=== PATIENT | female | born 1950 | race Caucasian/White ===

== ENCOUNTER 2017-07-03 14:18 | Emergency (ER) | payer MEDICARE, BC ==
[2017-07-03 15:05] VITALS: BP 138/89
--- NOTE | 2017-07-03 16:00 | EDM.PDOC ---
ED HPI GENERAL MEDICAL PROBLEM - General Chief Complaint: Upper Extremity Injury/Pain Stated Complaint: FELL ON ICE, HURT LEFT ELBOW AND RIBS Time Seen by Provider: 07/03/17 15:50 Source of Information: Reports: Patient History Limitations: Reports: No Limitations - History of Present Illness INITIAL COMMENTS - FREE TEXT/NARRATIVE: This 67 yo female patient reports to the ED due to a ground level fall, pain in her left elbow and pain in her left ribs. The patient reports she slipped on the ice this morning and hit her elbow. The patient reports she placed a bandage over her left elbow, but continues to have some bleeding. The patient reports increased left rib pain with breathing, sneezing or coughing. The patient reports no similar previous injuries. The patient reports she had no loss of consciousness before, during or after the fall. Onset: Today Onset Date: 07/03/17 Duration: Constant Location: Reports: Chest (left rib), Upper Extremity, Left (left elbow) Quality: Reports: Ache, Sharp, Stabbing Severity: Moderate Improves with: Reports: Rest Worsens with: Reports: Movement Context: Reports: Trauma (fall) Associated Symptoms: Reports: Chest Pain (left rib pain) Left Flank Pain Score (Numeric/FACES): 5 - Related Data Allergies Allergy/AdvReac Type Severity Reaction Status Date / Time amoxicillin trihydrate Allergy Rash Verified 09/15/15 13:29 [From Augmentin] potassium clavulanate Allergy Rash Verified 09/15/15 13:29 [From Augmentin] Home Meds: Home Meds Alendronate [Fosamax] 70 mg PO ASDIRECTED 09/15/15 [History] Aspirin [Low Dose Aspirin EC] 81 mg PO DAILY 09/15/15 [History] Aspirin/Acetaminophen/Caffeine [Svcbqos-Zletbzpukcxet-Uxwj Tab] 1 tab PO ASDIRECTED PRN 09/15/15 [History] Budesonide/Formoterol [Symbicort 160-4.5 MCG] 2 inh INH DAILY 09/15/15 [History] Carboxymethylcellulose Sodium [Restore Tears] 1 drop EYEBOTH DAILY 09/15/15 [ History] DULoxetine HCl [Cymbalta] 60 mg PO DAILY 09/15/15 [History] Vitamin B Complex [B Complex] 1 tab PO DAILY 09/15/15 [History] Vitamin E 400 unit PO DAILY 09/15/15 [History] Krill/[place]-3/Dha/Epa/Lipids [Krill Oil 300 mg Softgel] 1 tab PO DAILY 09/16/15 [History] Past Medical History HEENT History: Reports: Impaired Vision - Past Surgical History Female Surgical History: Reports: Hysterectomy, Tubal Ligation Social & Family History - Tobacco Use Smoking Status *Q: Current Every Day Smoker Years of Tobacco use: 50 Packs/Tins Daily: 1 - Caffeine Use Caffeine Use: Reports: Coffee, Soda Review of Systems - Review of Systems Review Of Systems: ROS reveals no pertinent complaints other than HPI. ED EXAM, GENERAL - Physical Exam Exam: See Below Exam Limited By: No Limitations General Appearance: Alert, WD/WN, Moderate Distress Eye Exam: Bilateral Eye: EOMI, Normal Inspection, PERRL Ears: Normal External Exam, Normal Canal, Hearing Grossly Normal, Normal TMs Nose: Normal Inspection, Normal Mucosa, No Blood Throat/Mouth: Normal Inspection, Normal Lips, Normal Teeth, Normal Gums, Normal Oropharynx, Normal Voice, No Airway Compromise Head: Atraumatic, Normocephalic Neck: Normal Inspection, Supple, Non-Tender, Full Range of Motion Respiratory/Chest: No Respiratory Distress, Lungs Clear, Normal Breath Sounds, No Accessory Muscle Use, Other (left rib tenderness to palpation (mid left sided rib pain) ) Cardiovascular: Normal Peripheral Pulses, Regular Rate, Rhythm, No Edema, No Gallop, No JVD, No Murmur, No Rub GI/Abdominal: Normal Bowel Sounds, Soft, Non-Tender, No Organomegaly, No Distention, No Abnormal Bruit, No Mass (Female) Exam: Deferred Rectal (Female) Exam: Deferred Back Exam: Normal Inspection, Full Range of Motion, NT Extremities: Arm Pain (left elbow pain (abrasion with bleeding controlled) Neurological: Alert, Oriented, CN II-XII Intact, Normal Cognition, Normal Gait, Normal Reflexes, No Motor/Sensory Deficits Psychiatric: Normal Affect, Normal Mood Skin Exam: Warm, Dry, Intact, Normal Color, No Rash Lymphatic: No Adenopathy Course - Vital Signs Last Recorded V/S: Last Vital Signs Temp 36.6 C 07/03/17 15:04 Pulse 76 07/03/17 15:04 Resp 16 07/03/17 15:04 BP 138/89 07/03/17 15:04 Pulse Ox 99 07/03/17 15:04 Departure - Departure Time of Disposition: 16:55 Disposition: Home, Self-Care 01 Condition: Fair Clinical Impression: Fall from ground level Contusion of rib on left side Qualifiers: Encounter type: initial encounter Qualified Code(s): S20.212A - Contusion of left front wall of thorax, initial encounter Left elbow contusion Qualifiers: Encounter type: initial encounter Qualified Code(s): S50.02XA - Contusion of left elbow, initial encounter - Discharge Information Instructions: Rib Contusion, Elbow Contusion, Ozjz-ge-Pbcg Forms: ED Department Discharge Care Plan Goals: The patient was advised of the examination and x-ray results during the visit. The patient was encouraged to take over the counter medications as directed for temporary symptom relief. The patient should rest, ice and elevate her left elbow. If the patient has any additional symptoms or concerns, the patient should follow-up with her primary care facility or return to the emergency department.
--- NOTE | 2017-07-03 16:36 | CR ---
Clinical history: 67-year-old female injured left chest (ribs) in a fall. Interpretation: Normal cardiac silhouette without cephalization of vascular flow, signs of alveolar edema or dependen t effusion. Mild dorsolumbar scoliosis, generalized osteopenia and multilevel disc disease with arthritic spondyl osis of the dorsal spine. No sign of left rib fracture, underlying lung contusion, ipsilateral dependent pleural effusion or le ft-sided pneumothorax (BB marker over the seventh rib on the left). No lung mass, hilar lymphadenopathy or focal lobar pneumonia. CONCLUSION: Chronic abnormalities dorsal spine. No left rib fracture. No new cardiopulmonary abnormality since 01 Sep 2008 exam.
--- NOTE | 2017-07-03 16:50 | CR ---
Clinical history: 67-year-old female injured fall. Interpretation: Tiny bone spur olecranon process proximal ulna. No sign of left elbow joint effusion, left elbow fracture or dislocation.
== END 2017-07-03 17:20 | disposition home or self-care (01) ==
LOC: DL.ED 14:18
DX: S20.212A Contusion of left front wall of thorax, initial encounter (principal); S50.02XA Contusion of left elbow, initial encounter; F17.210 Nicotine dependence, cigarettes, uncomplicated; Z88.1 Allergy status to other antibiotic agents; Z79.82 Long term (current) use of aspirin; Z79.899 Other long term (current) drug therapy; W00.9XXA Unspecified fall due to ice and snow, initial encounter
CPT/HCPCS: 71101-LT; 73080-LT; 99283; 99284

== ENCOUNTER 2017-11-01 08:03 | Day surgery (SDC) | payer MEDICARE, BC ==
[2017-11-01] MEDS ORDERED: Sodium Chloride 0.9% 10 ML Syringe IV ONE (08:04)
[2017-11-01] MEDS ORDERED: Dexamethasone 4 MG/ML SDV IV ONE (08:04)
[2017-11-01] MEDS ORDERED: Midazolam 1 MG/ML 2 ML SDV IV ONE (08:04)
[2017-11-01] MEDS ORDERED: Sodium Chloride 0.9% 10 ML Syringe FLUSH PRN (08:30)
[2017-11-01] MEDS ORDERED: Proparacaine 0.5% Ophth Soln 15 ML Bottle EYELF ONE (08:30)
[2017-11-01] MEDS ORDERED: Ondansetron 4 MG/2 ML SDV IVPUSH PRN (08:30)
[2017-11-01] MEDS ORDERED: Acetaminophen 325 MG Tab PO PRN (08:30)
[2017-11-01] MEDS ORDERED: Moxifloxacin 0.5% Ophth Soln 3 ML Bottle EYELF ONE (08:30)
[2017-11-01] MEDS ORDERED: Timolol Maleate 0.5% Ophth Soln 5 ML Bottle EYELF ONE (08:30)
[2017-11-01] MEDS ORDERED: Phenylephrine 10% Ophth Soln 5 ML Bot EYELF ONE (08:30)
[2017-11-01] MEDS ORDERED: Povidone-Iodine 5% Sterile Ophth Soln 30 ML Bottle EYELF ONE ×2 (08:30→09:35)
[2017-11-01] MEDS ORDERED: Cataract Ophth Solution EYELF ONE (08:30)
[2017-11-01] MEDS ORDERED: Phenylephrine 10% Ophth Soln 5 ML Bot EYELF PRN (08:30)
[2017-11-01] MEDS ORDERED: Tetracaine HCl/PF 0.5% 4 ML Bottle EYELF ONE (09:34)
[2017-11-01] MEDS ORDERED: Lidocaine 1% 30 ML SDV INJECT ONE (09:39)
[2017-11-01] MEDS ORDERED: Balanced Salt Solution Plus Ophth Irrig 500 ML Bottle IOCULAR ONE (09:40)
[2017-11-01] MEDS ORDERED: Vancomycin 500 MG SDV EYELF ONE (09:41)
[2017-11-01] MEDS ORDERED: Chondroitin Sulfate/Hyaluronate Sodium Ophth Inj 0.75 ML Syringe EYELF ONE (09:43)
[2017-11-01] MEDS ORDERED: Apraclonidine 0.5% Ophth Soln 5 ML Bot EYELF ONE (09:48)
[2017-11-01] MEDS ORDERED: Dexamethasone/Neomycin/Polymyxin B Ophth Oint 3.5 GM Tube EYELF ONE (09:49)
--- NOTE | 2017-11-01 10:28 | OR ---
DATE: 11/01/2017 PREOPERATIVE DIAGNOSIS: Visually significant mixed cataract, left eye. POSTOPERATIVE DIAGNOSIS: Visually significant mixed cataract, left eye. PROCEDURE: Extracapsular cataract extraction with intraocular lens implant, left eye. ANESTHESIA: Topical/local MAC. COMPLICATIONS: None. INDICATION: Ms. Huitron was seen in the clinic. She has complained of difficulty reading, difficulty seeing road signs, difficulty with glare and depth perception. Clinical examination reveals visually significant mixed cataract. I explained options; I offered cataract surgery; and I explained risks including but not limited to infection, retinal detachment, loss of vision, and need for additional surgery amongst others. We discussed implant options. She has requested a monofocal implant. She understands that she may require glasses following surgery. OPERATIVE DESCRIPTION: After informed consent was obtained and the risks, benefits, and alternatives were explained, the patient was brought to the operative suite and topical anesthesia was administered. The patient was then prepped and draped in the sterile fashion, and attention was placed on the left eye. A sterile lid speculum was placed into the left eye to allow operative exposure. A full-thickness paracentesis was made in the temporal portion of the operative eye. Preservative-free lidocaine 0.1 mL was injected into the anterior chamber followed by viscoelastic. A full-thickness corneal incision was then made into the anterior chamber. A bent needle cystotome was used to create a small charles in the anterior capsule. The capsulorrhexis forceps was then used to create a 360-degree curvilinear capsulorrhexis. The nucleus was then removed using a phacoemulsification handpiece, and the remaining cortical material was then removed with irrigation and aspiration handpiece. Following removal of the cortical material, the capsular bag was then inspected and noted to be free of any holes or tears. Viscoelastic was then injected into the capsular bag, and the intraocular lens was inserted into the capsular bag. The viscoelastic material was then removed from both the anterior and posterior chambers and from behind the IOL. The lens and capsular bag were then reinspected. The IOL was well centered and the capsular bag intact. The wound and paracentesis sites were inspected and hydrated with balanced saline solution. Both were found to be self-sealing. The intraocular pressure was assessed digitally and found to be within normal range. A good red reflex was noted at the completion of the procedure. No complications occurred during the operation. At the completion of the procedure, Jacqui Inmann, and Iopidine drops were placed into the operative eye. A sterile eye shield was placed over the operative eye, and the patient was transported to the postoperative recovery area having tolerated the procedure well. Postoperative instructions were given along with a postoperative appointment. The patient was advised to call with any questions or concerns. [facility] /[id number]
[2017-11-01 13:22] VITALS: BP 145/85
== END 2017-11-01 10:48 | disposition home or self-care (01) ==
LOC: DL.SDS 08:03
PROVIDERS: ATTEND Ophthalmology
DX: H25.812 Combined forms of age-related cataract, left eye (principal); I10 Essential (primary) hypertension; J44.9 Chronic obstructive pulmonary disease, unspecified; F17.210 Nicotine dependence, cigarettes, uncomplicated; F41.9 Anxiety disorder, unspecified; E78.5 Hyperlipidemia, unspecified; F32.9 Major depressive disorder, single episode, unspecified; Z79.82 Long term (current) use of aspirin; Z79.899 Other long term (current) drug therapy; Z88.0 Allergy status to penicillin
CPT/HCPCS: 00142; 66984; A9270; C1780; J1100; J2250; J3370; J7050

== ENCOUNTER 2017-11-08 07:59 | Day surgery (SDC) | payer MEDICARE, BC ==
[2017-11-08] MEDS ORDERED: Moxifloxacin 0.5% Ophth Soln 3 ML Bottle EYERT ONE (08:00)
[2017-11-08] MEDS ORDERED: Midazolam 1 MG/ML 2 ML SDV IV ONE (08:00)
[2017-11-08] MEDS ORDERED: Ondansetron 4 MG/2 ML SDV IVPUSH PRN (08:00)
[2017-11-08] MEDS ORDERED: Sodium Chloride 0.9% 10 ML Syringe FLUSH PRN (08:00)
[2017-11-08] MEDS ORDERED: Povidone-Iodine 5% Sterile Ophth Soln 30 ML Bottle EYERT ONE ×2 (08:00→09:31)
[2017-11-08] MEDS ORDERED: Phenylephrine 10% Ophth Soln 5 ML Bot EYERT ONE (08:00)
[2017-11-08] MEDS ORDERED: Proparacaine 0.5% Ophth Soln 15 ML Bottle EYERT ONE (08:00)
[2017-11-08] MEDS ORDERED: Cataract Ophth Solution EYERT ONE (08:00)
[2017-11-08] MEDS ORDERED: Sodium Chloride 0.9% 10 ML Syringe IV ONE (08:00)
[2017-11-08] MEDS ORDERED: Acetaminophen 325 MG Tab PO PRN (08:00)
[2017-11-08] MEDS ORDERED: Dexamethasone 4 MG/ML SDV IV ONE (08:00)
[2017-11-08] MEDS ORDERED: Timolol Maleate 0.5% Ophth Soln 5 ML Bottle EYERT ONE (08:00)
[2017-11-08] MEDS ORDERED: Phenylephrine 10% Ophth Soln 5 ML Bot EYERT PRN (08:00)
[2017-11-08] MEDS ORDERED: Tetracaine HCl/PF 0.5% 4 ML Bottle EYERT ONE (09:30)
[2017-11-08] MEDS ORDERED: Lidocaine 1% 30 ML SDV INJECT ONE (09:36)
[2017-11-08] MEDS ORDERED: Vancomycin 500 MG SDV EYERT ONE (09:37)
[2017-11-08] MEDS ORDERED: Balanced Salt Solution Ophth Irrig 500 ML Bottle IOCULAR ONE (09:37)
[2017-11-08] MEDS ORDERED: Chondroitin Sulfate/Hyaluronate Sodium Ophth Inj 0.75 ML Syringe EYERT ONE (09:38)
[2017-11-08] MEDS ORDERED: Dexamethasone/Neomycin/Polymyxin B Ophth Oint 3.5 GM Tube EYERT ONE (09:47)
[2017-11-08] MEDS ORDERED: Apraclonidine 0.5% Ophth Soln 5 ML Bot EYERT ONE (09:47)
[2017-11-08 12:04] VITALS: BP 121/75
--- NOTE | 2017-11-08 12:28 | OR ---
DATE: 11/08/2017 PREOPERATIVE DIAGNOSIS: Visually significant mixed cataract, right eye. POSTOPERATIVE DIAGNOSIS: Visually significant mixed cataract, right eye. PROCEDURE: Extracapsular cataract extraction with intraocular lens implant, right eye. ANESTHESIA: Topical/local MAC. COMPLICATIONS: None. INDICATION: Ms. Huitron was seen in the clinic. She is unhappy with her vision. She complains of difficulty reading, difficulty road signs, and difficulty with glare. Her clinical examination reveals visually significant mixed cataract. I explained options; I offered cataract surgery; and I explained risks including but not limited to infection, retinal detachment, loss of vision, and need for additional surgery. We discussed implant options. She has requested a monofocal implant. She is comfortable wearing glasses following surgery if necessary. OPERATIVE DESCRIPTION: After informed consent was obtained and the risks, benefits, and alternatives were explained, the patient was brought to the operative suite and topical anesthesia was administered. The patient was then prepped and draped in the sterile fashion, and attention was placed on the right eye. A sterile lid speculum was placed into the right eye to allow operative exposure. A full-thickness paracentesis was made in the temporal portion of the operative eye. Preservative-free lidocaine 0.1 mL was injected into the anterior chamber followed by viscoelastic. A full-thickness corneal incision was then made into the anterior chamber. A bent needle cystotome was used to create a small charles in the anterior capsule. The capsulorrhexis forceps was then used to create a 360-degree curvilinear capsulorrhexis. The nucleus was then removed using a phacoemulsification handpiece, and the remaining cortical material was then removed with irrigation and aspiration handpiece. Following removal of the cortical material, the capsular bag was then inspected and noted to be free of any holes or tears. Viscoelastic was then injected into the capsular bag and the intraocular lens was inserted into the capsular bag. The viscoelastic material was then removed from both the anterior and posterior chambers and from behind the IOL. The lens and capsular bag were then reinspected. The IOL was well centered and the capsular bag intact. The wound and paracentesis sites were inspected and hydrated with balanced saline solution. Both were found to be self-sealing. The intraocular pressure was assessed digitally and found to be within normal range. A good red reflex was noted at the completion of the procedure. No complications occurred during the operation. At the completion of the procedure, CommonBondrajeshl, Voltaren, and Iopidine drops were placed into the operative eye. A sterile eye shield was placed over the operative eye, and the patient was transported to the postoperative recovery area having tolerated the procedure well. Postoperative instructions were given along with a postoperative appointment. The patient was advised to call with any questions or concerns. [facility] /[id number]
== END 2017-11-08 11:10 | disposition home or self-care (01) ==
LOC: DL.SDS 07:59
PROVIDERS: ATTEND Ophthalmology
DX: H25.811 Combined forms of age-related cataract, right eye (principal); F17.210 Nicotine dependence, cigarettes, uncomplicated; J44.9 Chronic obstructive pulmonary disease, unspecified; I10 Essential (primary) hypertension; E78.5 Hyperlipidemia, unspecified; F41.1 Generalized anxiety disorder; F32.9 Major depressive disorder, single episode, unspecified; Z79.82 Long term (current) use of aspirin; Z88.0 Allergy status to penicillin
CPT/HCPCS: 00142; 66984; A9270; J3370; J7050; C1780; J1100; J2250

== ENCOUNTER 2020-02-05 19:22 | Inpatient (IN) | payer MEDICARE, BC, OTHER ==
[2020-02-05] MEDS ORDERED: oxyCODONE 5 MG Tab PO PRN (19:55)
[2020-02-05] MEDS ORDERED: Zolpidem 5 MG Tab PO PRN (19:55)
[2020-02-05] MEDS ORDERED: Albuterol 0.083% 2.5 MG/3 ML Neb Soln NEB PRN (19:55)
[2020-02-05] MEDS ORDERED: Non-Formulary Medication 1 Each (L.Acidoph,Paracasei, B.Lactis [Probiotic] 1 CAP) PO SCH (20:15)
--- NOTE | 2020-02-05 20:38 | PCM.HP ---
H&P History of Present Illness - General Date of Service: 02/05/20 Admit Problem/Dx: Admission Diagnosis/Problem Admission Diagnosis/Problem Acute heart failure Source of Information: Patient, Provider History Limitations: Reports: No Limitations - History of Present Illness Initial Comments - Free Text/Narative: Patient is a 69-year-old female with a medical history of COPD/asthma, anxiety/depression, tobacco use disorder who presented with complaints of shortness of breath and lateral leg swelling. Patient had seen her PCP 2 days ago for routine annual visit. On her way up daily to [place] she was the clinic daily, she became short of breath and had to be put on a wheelchair. Patient also reported that she had noticed lateral lower extremity swelling for the past 2 weeks. She denies any chest pain, fever, nausea, diarrhea, vomiting. No prior history of heart failure. She denies any exposure to anyone with coronavirus. She has productive cough usually in the morning and that is chronic. She has been a smoker for over 50 years. Labs were done at the visit which were remarkable for elevated BNP of 1140 and D-dimer over 600. Patient was recommended to be admitted for evaluation for new onset heart failure. Bilateral lower extremity ultrasound was negative for DVT. - Related Data Allergies/Adverse Reactions: Allergies Allergy/AdvReac Type Severity Reaction Status Date / Time amoxicillin trihydrate Allergy Rash Verified 02/05/20 20:12 [From Augmentin] potassium clavulanate Allergy Rash Verified 02/05/20 20:12 [From Augmentin] Home Medications: Home Meds Alendronate [Fosamax] 70 mg PO ASDIRECTED 09/15/15 [History] Aspirin [Low Dose Aspirin EC] 81 mg PO DAILY 09/15/15 [History] Aspirin/Acetaminophen/Caffeine [Meafshk-Gnhkguzmlmuec-Pvtf Tab] 1 tab PO ASDIRECTED PRN 09/15/15 [History] Budesonide/Formoterol [Symbicort 160-4.5 MCG] 2 inh INH DAILY 09/15/15 [History] Carboxymethylcellulose Sodium [Restore Tears] 1 drop EYEBOTH DAILY 09/15/15 [History] Vitamin B Complex [B Complex] 1 tab PO DAILY 09/15/15 [History] Vitamin E 400 unit PO DAILY 09/15/15 [History] Krill/[place]-3/Dha/Epa/Lipids [Krill Oil 300 mg Softgel] 1 tab PO DAILY 09/16/15 [History] Calcium Carb/Magnesium Oxid/D3 [Calcium Magnesium + D] 1 tab PO DAILY 10/31/17 [History] Estrogens, Conjugated [Premarin] 0.45 mg PO DAILY 10/31/17 [History] L.acidoph,Paracasei, B.lactis [Probiotic] 1 cap PO ASDIRECTED 10/31/17 [History] Methylcellulose [Citrucel] 500 mg PO DAILY 10/31/17 [History] Venlafaxine [Effexor XR] 150 mg PO DAILY 10/31/17 [History] Multivitamin-Min/Iron/FA/Vit K [Multi-Day Plus Minerals Tablet] 1 tab PO DAILY 11/06/17 [History] Vhvz-Utyd-Rviwz [Cataract Opthalmic Solution] 1 drop EYEBOTH ASDIRECTED 11/07/17 [History] PARoxetine [Paxil] 10 mg PO DAILY 01/17/20 [History] Past Medical History HEENT History: Reports: Cataract, Impaired Vision, Other (See Below) Other HEENT History: DENTURES Cardiovascular History: Reports: High Cholesterol, Hypertension Respiratory History: Reports: Asthma, SOB Gastrointestinal History: Reports: Colon Polyp, GERD Genitourinary History: Reports: Urinary Incontinence, Other (See Below) Other Genitourinary History: URINARY [employer] History: Reports: , Other (See Below) Other OB/BYN History: FIBROCYSTIC BREAST. POSTMENOPAUSAL SYMPTOMS Musculoskeletal History: Reports: Arthritis, Osteoarthritis Neurological History: Reports: Headaches, Chronic Psychiatric History: Reports: Anxiety, Depression Endocrine/Metabolic History: Reports: Osteopenia Hematologic History: Reports: None Immunologic History: Reports: None Oncologic (Cancer) History: Reports: None Dermatologic History: Reports: None - Infectious Disease History Infectious Disease History: Reports: None - Past Surgical History Head Surgeries/Procedures: Reports: None HEENT Surgical History: Reports: Tonsillectomy Cardiovascular Surgical History: Reports: None GI Surgical History: Reports: Colonoscopy, Polypectomy Female Surgical History: Reports: Hysterectomy, Tubal Ligation, Other (See Below) Other Female Surgeries/Procedures: breast cyst aspiration Musculoskeletal Surgical History: Reports: None Social & Family History - Family History Family Medical History: Noncontributory - Caffeine Use Caffeine Use: Reports: Coffee, Soda Other Caffeine Use: 32 oz daily H&P Review of Systems - Review of Systems: Review Of Systems: See Below General: Reports: No Symptoms HEENT: Reports: No Symptoms Pulmonary: Reports: Shortness of Breath, Cough, Sputum Cardiovascular: Reports: Dyspnea on Exertion, Edema Gastrointestinal: Reports: No Symptoms Genitourinary: Reports: No Symptoms Musculoskeletal: Reports: No Symptoms Skin: Reports: No Symptoms Psychiatric: Reports: No Symptoms Neurological: Reports: No Symptoms Hematologic/Lymphatic: Reports: No Symptoms Immunologic: Reports: No Symptoms Exam - Exam Exam: See Below - Exam General: Alert, Oriented, 4 HEENT: PERRLA, Hearing Intact, Mucosa Moist & [place], Nares Patent, Normal Nasal Septum, Posterior Pharynx Clear, Conjunctiva Clear, EOMI, EACs Clear, TMs Clear Neck: Supple, Trachea Midline, 2 Lungs: Crackles Cardiovascular: Regular Rate, Regular Rhythm GI/Abdominal Exam: Normal Bowel Sounds, Soft, Non-Tender, No Organomegaly, No Distention, No Abnormal Bruit, No Mass, Pelvis Stable Back Exam: Normal Inspection, Full Range of Motion, NT Extremities: Pedal Edema Skin: Warm, Dry, Intact Neurological: Cranial Nerves Intact, Reflexes Equal Bilateral Neuro Extensive - Mental Status: Alert, Oriented x3, Normal Mood/Affect, Normal Cognition Neuro Extensive - Motor, Sensory, Reflexes: CN II-XII Intact, Normal Gait, Normal Reflexes Psychiatric: Alert, Normal Affect, Normal Mood Problem List Initiated/Reviewed/Updated: Yes Orders Last 24hrs: Active Orders 24 hr Category Date Time Status Patient Status [ADT] Routine ADT 02/05/20 19:55 Ordered Antiembolic Devices [RC] PER UNIT ROUTINE Care 02/05/20 20:02 Ordered Cardiac Monitoring [RC] CONTINUOUS Care 02/05/20 19:58 Ordered EKG Documentation Completion [RC] STAT Care 02/05/20 19:55 Ordered Intake and Output [RC] QSHIFT Care 02/05/20 19:58 Ordered Oxygen Therapy [RC] PRN Care 02/05/20 19:55 Ordered RT Aerosol Therapy [RC] ASDIRECTED Care 02/05/20 20:02 Ordered Up ad Elizabeth [RC] ASDIRECTED Care 02/05/20 19:55 Ordered VTE/DVT Education [RC] PER UNIT ROUTINE Care 02/05/20 19:55 Ordered Vital Signs [RC] Q4H Care 02/05/20 19:55 Ordered PT Evaluation and Treatment [CONS] Routine Cons 02/05/20 19:55 Ordered 2 Gram Sodium Diet [DIET] Diet 02/05/20 Dinner Ordered Chest 2V [CR] Routine Exams 02/05/20 19:55 Ordered Echo Ltd [US] Routine Exams 02/05/20 20:11 Ordered BASIC METABOLIC PANEL,BMP [CHEM] AM Lab 02/06/20 05:11 Ordered CBC W/O DIFF,HEMOGRAM [HEME] AM Lab 02/06/20 05:11 Ordered CORONAVIRUS COVID-19 RAPID [MOLEC] Stat Lab 02/05/20 20:14 Received MAGNESIUM [CHEM] AM Lab 02/06/20 05:11 Ordered PHOSPHORUS [CHEM] AM Lab 02/06/20 05:11 Ordered TROPONIN I [CHEM] Routine Lab 02/05/20 19:55 Ordered Acetaminophen [TylenoL] Med 02/05/20 19:55 Ordered 650 mg PO Q4H PRN Albuterol [Proventil Neb Soln] Med 02/05/20 19:55 Ordered 2.5 mg NEB Q2H PRN Alendronate [Fosamax] Med 02/05/20 20:15 Ordered 70 mg PO ASDIRECTED Aspirin [Halfprin] Med 02/06/20 09:00 Ordered 81 mg PO DAILY Budesonide/Formoterol Fumarate Med 02/06/20 09:00 Ordered 2 inh INH DAILY Calcium Carb/Magnesium Oxid/D3 [Calcium Magnesium + D] Med 02/06/20 09:00 Ordered 1 tab PO DAILY Carboxymethylcellulose Sodium [Restore Tears] Med 02/06/20 09:00 Ordered 1 drop EYEBOTH DAILY Estrogens, Conjugated [Premarin] Med 02/06/20 09:00 Ordered 0.45 mg PO DAILY Furosemide [Lasix] Med 02/05/20 21:00 Ordered 40 mg IVPUSH BID Heparin Sodium Med 02/05/20 22:00 Ordered 5,000 units SUBCUT Q8HR L.acidoph,Paracasei, B.lactis [Probiotic] Med 02/05/20 20:15 Ordered 1 cap PO ASDIRECTED Methylcellulose [Citrucel] Med 02/06/20 09:00 Ordered 500 mg PO DAILY Multivitamin-Min/Iron/FA/Vit K [Multi-Day Plus Minerals Med 02/06/20 09:00 Ordered Tablet] 1 tab PO DAILY Vitamin B Complex [B Complex] Med 02/06/20 09:00 Ordered 1 tab PO DAILY Vitamin E [Vitamin E] Med 02/06/20 09:00 Ordered 400 unit PO DAILY Zolpidem [Ambien] Med 02/05/20 19:55 Ordered 5 mg PO BEDTIME PRN oxyCODONE Med 02/05/20 19:55 Ordered 5 mg PO Q4H PRN Antiembolic Hose [OM.PC] Per Unit Routine Oth 02/05/20 19:59 Ordered Resuscitation Status Routine Resus Stat 02/05/20 19:55 Ordered Medication Orders Acetaminophen (Tylenol) 650 mg PO Q4H PRN PRN Reason: Pain (Mild 1-3)/fever Albuterol (Proventil Neb Soln) 2.5 mg NEB Q2H PRN PRN Reason: shortness of breath/wheezing Aspirin (Halfprin) 81 mg PO DAILY CHUN Furosemide (Lasix) 40 mg IVPUSH BID CHUN Heparin Sodium (Porcine) (Heparin Sodium) 5,000 units SUBCUT Q8HR CHUN Methylcellulose (Citrucel) 500 mg PO DAILY CHUN Non-Formulary Medication (Alendronate [Fosamax]) 70 mg PO ASDIRECTED CHUN Non-Formulary Medication (Budesonide/Formoterol Fumarate) 2 inh INH DAILY CHUN Non-Formulary Medication (Calcium Carb/Magnesium Oxid/D3 [Calcium Magnesium + D]) 1 tab PO DAILY CHUN Non-Formulary Medication (Carboxymethylcellulose Sodium [Restore Tears]) 1 drop EYEBOTH DAILY CHUN Non-Formulary Medication (Estrogens, Conjugated [Premarin]) 0.45 mg PO DAILY CHUN Non-Formulary Medication (L.Acidoph,Paracasei, B.Lactis [Probiotic]) 1 cap PO ASDIRECTED CHUN Non-Formulary Medication (Multivitamin-Min/Iron/Fa/Vit K [Multi-Day Plus Minerals Tablet]) 1 tab PO DAILY CHUN Non-Formulary Medication (Vitamin B Complex [B Complex]) 1 tab PO DAILY CHUN Non-Formulary Medication (Vitamin E [Vitamin E]) 400 unit PO DAILY CHUN Oxycodone HCl (Oxycodone) 5 mg PO Q4H PRN PRN Reason: Pain (moderate 4-6) Zolpidem Tartrate (Ambien) 5 mg PO BEDTIME PRN PRN Reason: Sleep Assessment/Plan Comment:: Dyspnea on exertion Acute CHF, new onset Patient presented with shortness of breath on exertion with elevated BNP of 1140. D-dimer also elevated at over 600. Differential at this moment include new onset CHF, pneumonia or pulmonary embolism. Ultrasound negative for DVT. Strict I's and O's and daily weights Obtain cardiac echo Obtain CTA for PE Diuresis with Lasix Obtain troponin level Asthma/COPD Continue Pedialyte/nebs Tobacco use disorder Counseled on tobacco cessation As needed nicotine patches Anxiety/depression Resume home medications
[2020-02-05] MEDS ORDERED: Furosemide 40 MG/4 ML VIAL IVPUSH SCH (21:00)
--- NOTE | 2020-02-05 21:56 | CR ---
PROCEDURE INFORMATION: Exam: XR Chest, 2 Views Exam date and time: 02/05/2020 8:16 PM Age: 69 years old Clinical indication: Shortness of breath TECHNIQUE: Imaging protocol: XR of the chest Views: 2 views. COMPARISON: CT Chest Abdomen Pelvis w Cont 01/15/2020 10:14 AM FINDINGS: Lungs: Hyperinflation compatible with obstructive pulmonary disease. Moderate central pulmonary venous congestion. Pleural space: Small right pleural effusion. Heart/Mediastinum: Moderate enlargement of the cardiopericardial silhouette. Bones/joints: Unremarkable. IMPRESSION: 1. Enlarged cardiopericardial silhouette with moderate central pulmonary venous congestion and small right pleural effusion. Minimal interstitial edema. 2. Obstructive pulmonary disease.
[2020-02-05] MEDS: Furosemide 20 MG/2 ML VIAL IVPUSH SCH (21:57)
[2020-02-05] MEDS: Formoterol/Mometasone 200-5 MCG 8.8 GM Inhaler IH SCH (21:57)
[2020-02-05] MEDS: Heparin Sodium 5,000 Units/ML Vial SUBCUT SCH (21:58)
[2020-02-05] MEDS ORDERED: Iopamidol 755 Mg/ML 100 ML Bottle IVPUSH ONE (23:10)
--- NOTE | 2020-02-06 00:08 | CT ---
PROCEDURE INFORMATION: Exam: CT Chest With Contrast Exam date and time: 02/05/2020 10:43 PM Age: 69 years old Clinical indication: Shortness of breath; Additional info: Suspected pulmonary embolism TECHNIQUE: Imaging protocol: Computed tomography of the chest with intravenous contrast. Radiation optimization: All CT scans at this facility use at least one of these dose optimization techniques: automated exposure control; mA and/or kV adjustment per patient size (includes targeted exams where dose is matched to clinical indication); or iterative reconstruction. Contrast material: [id number]; Contrast volume: 75 ml; Contrast route: INTRAVENOUS (IV); COMPARISON: CT Chest Abdomen Pelvis w Cont 01/15/2020 10:14 AM FINDINGS: Lungs: There are scattered linear densities in both lungs which are likely fibrotic or atelectatic. Mild bilateral peribronchial thickening.Moderate diffuse emphysematous changes are present. 9 mm nodule right lower lobe is changed little, follow-up intervals extremely short. A small amount of patchy nodular infiltrate is identified in the posterior right upper lobe, this area was clear previously. Pleural space: There is a small right pleural effusion. Heart: There is severe cardiomegaly. The left ventricle is particularly prominent. Pulmonary arteries: There are no pulmonary arterial filling defects identified. The main pulmonary artery is dilated being greater in diameter than the ascending aorta. Consider pulmonary arterial hypertension. Aorta: There is no thoracic aortic aneurysm. Lymph nodes: The 16 mm AP window lymph node. There prominent/mildly enlarged hilar lymph nodes bilaterally. Bones/joints: No acute bony findings are identified. Soft tissues: No acute soft tissue abnormalities are identified. IMPRESSION: 1. There is no CT evidence of pulmonary embolism. 2. Consider pulmonary arterial hypertension. 3. Severe cardiomegaly. 4. An element of pulmonary venous hypertension may well be present. Overt interstitial edema is not seen. 5. Small amount of patchy nodular infiltrate posterior right upper lobe may be inflammatory. 6. Mediastinal hilar adenopathy may be reactive or malignant. 7. 9 mm left lower lobe nodule.For both low risk and high risk patients, consider CT Chest at 3 months, PET/CT, or biopsy. (Reference: Ronaldo) REFERENCES: Ronaldo Lemus et al. Guidelines for Management of Incidental Pulmonary Nodules Detected on CT Images: From the Fleischner Society 2017. Radiology. 2017;284(1):228-243.
[2020-02-06] MEDS: Acetaminophen 325 MG Tab PO PRN ×2 (01:52→14:07)
[2020-02-06] MEDS: Heparin Sodium 5,000 Units/ML Vial SUBCUT SCH ×3 (05:52→21:29)
[2020-02-06 07:10] LABS: CHLORIDE,CL 102 mmol/L (98-107); SODIUM,NA 142 mmol/L (136-145)
[2020-02-06] MEDS: Multivitamins, Therapeutic with Minerals Tab PO SCH (08:54)
[2020-02-06] MEDS: Vitamin E (dl-alpha-tocopherol acetate) 400 Unit Cap PO SCH (08:55)
[2020-02-06] MEDS: Furosemide 20 MG/2 ML VIAL IVPUSH SCH (08:55)
[2020-02-06] MEDS: Aspirin 81 MG Tab.EC PO SCH (08:55)
[2020-02-06] MEDS: Carboxymethylcellulose Sodium 1% Ophth Gel 0.4 ML UD EYEBOTH SCH (08:55)
[2020-02-06] MEDS: Calcium Carbonate/Vitamin D3 1250 MG-200 Unit Tab PO SCH (08:55)
[2020-02-06] MEDS: Vitamin B Complex Cap PO SCH (08:55)
[2020-02-06] MEDS: Formoterol/Mometasone 200-5 MCG 8.8 GM Inhaler IH SCH ×2 (08:56→21:29)
[2020-02-06] MEDS ORDERED: ESTROGENS CONJUGATED 0.45 MG PO SCH (09:00)
[2020-02-06] MEDS ORDERED: Potassium Chloride 10 MEQ in Premix Bag 4 BAG IV SCH (09:30)
[2020-02-06] MEDS ORDERED: Magnesium Sulfate/Water 2 GM in Premix Bag 1 BAG IV ONE (10:00)
[2020-02-06] MEDS ORDERED: Potassium Chloride 10 MEQ in Premix Bag 1 BAG IV SCH ×3 (10:00→15:30)
[2020-02-06] MEDS: Potassium Chloride 10 MEQ Tab.ER PO SCH ×2 (10:25→17:10)
--- NOTE | 2020-02-06 10:51 | PCM.PN ---
- General Info Date of Service: 02/06/20 Admission Dx/Problem (Free Text): Admission Diagnosis/Problem Admission Diagnosis/Problem Acute heart failure Subjective Update: Patient seen and examined today. Patient walking around with minimal shortness of breath. Leg swelling improved. Functional Status: Reports: Pain Controlled - Review of Systems General: Reports: No Symptoms HEENT: Reports: No Symptoms Pulmonary: Reports: No Symptoms Cardiovascular: Reports: No Symptoms Gastrointestinal: Reports: No Symptoms Genitourinary: Reports: No Symptoms Musculoskeletal: Reports: No Symptoms Skin: Reports: No Symptoms Neurological: Reports: No Symptoms Psychiatric: Reports: No Symptoms - Patient Data Vitals - Most Recent: Last Vital Signs Temp 98.9 F 02/06/20 08:00 Pulse 73 02/06/20 08:00 Resp 18 02/06/20 08:00 BP 111/70 02/06/20 08:00 Pulse Ox 94 L 02/06/20 08:00 Weight - Most Recent: 115 lb 9 oz I&O - Last 24 Hours: Intake & Output 02/05/20 02/06/20 02/06/20 22:59 06:59 14:59 Intake Total 60 Output Total 100 1400 Balance -100 -1400 60 Lab Results Last 24 Hours: Laboratory Results - last 24 hr 02/05/20 02/05/20 02/06/20 Range/Units 20:14 21:16 06:05 WBC 6.1 (5.0-10.0) 10^3/uL RBC 3.84 L (4.2-5.4) 10^6/uL Hgb 12.5 (12.0-16.0) g/dL Hct 38.1 (37.0-47.0) % MCV 99.2 (80-100) fL MCH 32.6 (27.0-34.0) pg MCHC 32.8 L (33.0-35.0) g/dL Plt Count 208 (150-450) 10^3/uL Sodium (136-145) mmol/L Potassium (3.5-5.1) mmol/L Chloride (98-107) mmol/L Carbon Dioxide (21-32) mmol/L Anion Gap (7-13) mEq/L BUN (7-18) mg/dL Creatinine (0.55-1.02) mg/dL Est Cr Clr Drug Dosing mL/min Estimated GFR (MDRD) Glucose (74-99) mg/dL Calcium (8.5-10.1) mg/dL Phosphorus (2.6-4.7) mg/dL Magnesium (1.8-2.4) mg/dL Troponin I 0.039 (0.000-0.056) ng/mL SARS CoV-2 RNA Rapid CYNTHIA Negative (NEGATIVE) 02/06/20 Range/Units 06:05 WBC (5.0-10.0) 10^3/uL RBC (4.2-5.4) 10^6/uL Hgb (12.0-16.0) g/dL Hct (37.0-47.0) % MCV (80-100) fL MCH (27.0-34.0) pg MCHC (33.0-35.0) g/dL Plt Count (150-450) 10^3/uL Sodium 142 (136-145) mmol/L Potassium 3.0 L (3.5-5.1) mmol/L Chloride 102 (98-107) mmol/L Carbon Dioxide 35 H (21-32) mmol/L Anion Gap 8.0 (7-13) mEq/L BUN 8 (7-18) mg/dL Creatinine 0.70 (0.55-1.02) mg/dL Est Cr Clr Drug Dosing 62.77 mL/min Estimated GFR (MDRD) > 60 Glucose 93 (74-99) mg/dL Calcium 9.1 (8.5-10.1) mg/dL Phosphorus 3.8 (2.6-4.7) mg/dL Magnesium 1.6 L (1.8-2.4) mg/dL Troponin I 0.052 (0.000-0.056) ng/mL SARS CoV-2 RNA Rapid CYNTHIA (NEGATIVE) Med Orders - Current: Current Medications Acetaminophen (Tylenol) 650 mg PO Q4H PRN PRN Reason: Pain (Mild 1-3)/fever Last Admin: 02/06/20 01:52 Dose: 650 mg Documented by: Albuterol (Proventil Neb Soln) 2.5 mg NEB Q2H PRN PRN Reason: shortness of breath/wheezing Artificial Tears (Refresh Celluvisc) 1 each EYEBOTH DAILY [facility] Last Admin: 02/06/20 08:55 Dose: 1 each Documented by: Aspirin (Halfprin) 81 mg PO DAILY [facility] Last Admin: 02/06/20 08:55 Dose: 81 mg Documented by: Calcium Carbonate (Calcium Carbonate/Vitamin D 1250 Mg-200 Unit) 1 tab PO DAILY [facility] Last Admin: 02/06/20 08:55 Dose: 1 tab Documented by: Furosemide (Lasix) 20 mg IVPUSH DAILY [facility] Heparin Sodium (Porcine) (Heparin Sodium) 5,000 units SUBCUT Q8HR [facility] Last Admin: 02/06/20 05:52 Dose: Not Given Documented by: Magnesium Sulfate 2 gm/ Premix 50 mls @ 25 mls/hr IV ONETIME ONE Stop: 02/06/20 11:59 Last Admin: 02/06/20 10:24 Dose: 25 mls/hr Documented by: Potassium Chloride 10 meq/ (Premix) 100 mls @ 100 mls/hr IV Q1H [facility] Stop: 02/06/20 14:59 Methylcellulose (Citrucel) 500 mg PO DAILY [facility] Last Admin: 02/06/20 08:55 Dose: 500 mg Documented by: Miscellaneous Information (Check Patch) 1 ea TRDERM BEDTIME [facility] Mometasone Furoate/Formoterol Fumar (Dulera 200-5 Mcg) 2 puff IH BID [facility] Last Admin: 02/06/20 08:56 Dose: 2 puff Documented by: Multivitamins/Minerals (Vitamins And Minerals) 1 tab PO DAILY [facility] Last Admin: 02/06/20 08:54 Dose: 1 tab Documented by: Nicotine (Habitrol) 14 mg TRDERM DAILY [facility] Oxycodone HCl (Oxycodone) 5 mg PO Q4H PRN PRN Reason: Pain (moderate 4-6) Potassium Chloride (Klor-Con 10) 40 meq PO BIDMEALS [facility] Last Admin: 02/06/20 10:25 Dose: 40 meq Documented by: Vitamin B Complex (Vitamin B Complex) 1 each PO DAILY [facility] Last Admin: 02/06/20 08:55 Dose: 1 each Documented by: Vitamin E (Vitamin E) 400 units PO DAILY [facility] Last Admin: 02/06/20 08:55 Dose: 400 units Documented by: Zolpidem Tartrate (Ambien) 5 mg PO BEDTIME PRN PRN Reason: Sleep Discontinued Medications Alendronate Sodium (Fosamax) 70 mg PO ASDIRECTED [facility] Furosemide (Lasix) 40 mg IVPUSH BID [facility] Furosemide (Lasix) 20 mg IVPUSH DAILY [facility] Last Admin: 02/06/20 08:55 Dose: 20 mg Documented by: Potassium Chloride 10 meq/ (Premix) 100 mls @ 100 mls/hr IV Q1H [facility] Stop: 02/06/20 13:59 Iopamidol (Isovue-370 (76%)) 100 ml IVPUSH ONETIME ONE Stop: 02/05/20 23:11 Last Admin: 02/05/20 22:59 Dose: 75 ml Documented by: Non-Formulary Medication (L.Acidoph,Paracasei, B.Lactis [Probiotic]) 1 cap PO ASDIRECTED [facility] - Exam General: Alert, Oriented HEENT: Pupils Equal, Pupils Reactive, EOMI, Mucous Membr. Moist/[place] Neck: Supple Lungs: Clear to Auscultation, Normal Respiratory Effort Cardiovascular: Regular Rate, Regular Rhythm GI/Abdominal Exam: Normal Bowel Sounds, Soft, Non-Tender, No Organomegaly, No Distention, No Abnormal Bruit, No Mass, Pelvis Stable Back Exam: Normal Inspection, Full Range of Motion Extremities: Normal Inspection, Normal Range of Motion, Non-Tender, No Pedal Edema, Normal Capillary Refill Skin: Warm, Dry, Intact Neurological: No New Focal Deficit Psy/Mental Status: Alert, Normal Affect, Normal Mood Sepsis Event Note - Evaluation Sepsis Screening Result: No Definite Risk - Focused Exam Vital Signs: Vital Signs Temp Pulse Resp BP Pulse Ox 02/06/20 08:00 98.9 F 73 18 111/70 94 L - Problem List Review Problem List Initiated/Reviewed/Updated: Yes - My Orders Last 24 Hours: My Active Orders 02/05/20 Dinner 2 Gram Sodium Diet [DIET] 02/05/20 19:55 Patient Status [ADT] Routine Oxygen Therapy [RC] PRN Up ad Elizabeth [RC] ASDIRECTED VTE/DVT Education [RC] PER UNIT ROUTINE Vital Signs [RC] 00,04,08,12,16,20 PT Evaluation and Treatment [CONS] Routine Acetaminophen [TylenoL] 650 mg PO Q4H PRN Albuterol [Proventil Neb Soln] 2.5 mg NEB Q2H PRN Zolpidem [Ambien] 5 mg PO BEDTIME PRN oxyCODONE 5 mg PO Q4H PRN Resuscitation Status Routine 02/05/20 19:58 Cardiac Monitoring [RC] 08,20 Intake and Output [RC] QSHIFT 02/05/20 19:59 Antiembolic Hose [OM.PC] Per Unit Routine 02/05/20 20:02 Antiembolic Devices [RC] PER UNIT ROUTINE RT Aerosol Therapy [RC] ASDIRECTED 02/05/20 21:15 Mometasone/Formoterol [Dulera 200-5 MCG] 2 puff IH BID 02/05/20 22:00 Heparin Sodium 5,000 units SUBCUT Q8HR 02/06/20 09:00 Aspirin [Halfprin] 81 mg PO DAILY Calcium Carbonate/Vitamin D3 [Calcium Carbonate/Vitamin D 1250 MG-200 Unit] 1 tab PO DAILY Carboxymethylcellulose Sodium [Refresh Celluvisc] 1 each EYEBOTH DAILY Methylcellulose [Citrucel] 500 mg PO DAILY Multivitamins/Minerals [Vitamins and Minerals] 1 tab PO DAILY Vitamin B Complex 1 each PO DAILY Vitamin E (dl, acetate) [Vitamin E] 400 units PO DAILY 02/06/20 10:00 Magnesium Sulfate/Water [Magnesium Sulfate in Water Premix] 2 gm Premix Bag 1 bag IV ONETIME Potassium Chloride [Klor-Con 10] 40 meq PO BIDMEALS 02/06/20 10:30 Nicotine [Habitrol] 14 mg TRDERM DAILY 02/06/20 11:00 Potassium Chloride [KCl 10 MEQ in Water 100 ML] 10 meq Premix Bag 1 bag IV Q1H 02/06/20 15:00 [employer] [US] Routine 02/06/20 21:00 Check Patch 1 ea TRDERM BEDTIME 02/07/20 05:11 BMP [BASIC METABOLIC PANEL,BMP] [CHEM] AM 02/07/20 09:00 Furosemide [Lasix] 20 mg IVPUSH DAILY 02/08/20 05:11 BMP [BASIC METABOLIC PANEL,BMP] [CHEM] AM 02/09/20 05:11 BMP [BASIC METABOLIC PANEL,BMP] [CHEM] AM - Plan Plan:: Dyspnea on exertion Acute CHF, new onset Patient presented with shortness of breath on exertion with elevated BNP of 1140. D-dimer also elevated at over 600. Differential at this moment include new onset CHF, pneumonia or pulmonary embolism. Ultrasound negative for DVT. CT for PE was negative but showed cardiomegaly. Serial troponin negative. Strict I's and O's and daily weights Obtain cardiac echo Diuresis with Lasix Pulmonary nodule 9 mm left lower lobe pulmonary nodule seen on CT scan Follow-up in [address] Asthma/COPD Continue Pedialyte/nebs Tobacco use disorder Counseled on tobacco cessation As needed nicotine patches Anxiety/depression Resume home medications Hypokalemia Potassium of 3.0 Replaced
[2020-02-06] MEDS: Nicotine 14 MG/24 Hr Patch TRDERM SCH (11:15)
[2020-02-06] MEDS: Potassium Chloride 10 MEQ in Premix Bag 1 BAG IV SCH ×3 (12:46→14:40)
[2020-02-06] MEDS: Potassium Chloride 10 MEQ, Lidocaine 1% 1 ML in Premix Bag 1 BAG IV SCH ×3 (15:54→20:42)
[2020-02-06] MEDS: PARoxetine 20 MG Tab PO SCH (17:11)
[2020-02-07] MEDS: Heparin Sodium 5,000 Units/ML Vial SUBCUT SCH ×2 (07:12→15:25)
[2020-02-07 07:27] LABS: ANION GAP 9.1 mEq/L (7-13); CHLORIDE,CL 104 mmol/L (98-107); SODIUM,NA 141 mmol/L (136-145)
[2020-02-07] MEDS: Multivitamins, Therapeutic with Minerals Tab PO SCH (08:35)
[2020-02-07] MEDS: Vitamin B Complex Cap PO SCH (08:36)
[2020-02-07] MEDS: Aspirin 81 MG Tab.EC PO SCH (08:36)
[2020-02-07] MEDS: PARoxetine 20 MG Tab PO SCH (08:37)
[2020-02-07] MEDS: Calcium Carbonate/Vitamin D3 1250 MG-200 Unit Tab PO SCH (08:37)
[2020-02-07] MEDS: Vitamin E (dl-alpha-tocopherol acetate) 400 Unit Cap PO SCH (08:37)
[2020-02-07] MEDS: Potassium Chloride 10 MEQ Tab.ER PO SCH ×2 (08:38→18:07)
[2020-02-07] MEDS: Carboxymethylcellulose Sodium 1% Ophth Gel 0.4 ML UD EYEBOTH SCH (08:41)
[2020-02-07] MEDS: Formoterol/Mometasone 200-5 MCG 8.8 GM Inhaler IH SCH (08:42)
[2020-02-07] MEDS: Nicotine 14 MG/24 Hr Patch TRDERM SCH (08:48)
[2020-02-07] MEDS ORDERED: Furosemide 20 MG/2 ML VIAL IVPUSH SCH (09:00)
[2020-02-07 13:49] VITALS: BP 131/86; PULSE 89
--- NOTE | 2020-02-07 15:54 | PCM.DCSUM1 ---
Discharge Summary - Hospital Course Free Text/Narrative:: Patient is a 69-year-old female with a medical history of COPD/asthma, anxiety/depression, tobacco use disorder who presented with complaints of shortness of breath and lateral leg swelling. Labs showed elevated BNP of 1140 and D-dimer over 600. Bilateral lower extremity ultrasound was negative for DVT and CT scan was also negative for PE. Serial troponin was negative. However Ct showed a 9 mm LLL nodule. Patient's edema and shortness of breath resolved with diuresis. Problems addressed during this hospitalization. Acute combined systolic and diastolic CHF, new onset Moderate pulmonary hypertension TTE showed EF of 25-30% with severe global hypokinesis, Grade II diastolic dysfunction and RVSP of 50 mmHg. There was also LV trabeculations with recommendation for cardiac MRI for further evaluation. Follow-up with cardiology Started on lisinopril, carvedilol and Lasix Pulmonary nodule 9 mm left lower lobe pulmonary nodule seen on CT scan Follow-up in [address] Asthma/COPD Continue nebs Tobacco use disorder Counseled on tobacco cessation Anxiety/depression Resume home medications Hypokalemia Replaced Diagnosis: Stroke: No - Discharge Data Discharge Date: 02/07/20 Discharge Disposition: Home, Self-Care 01 Condition: Good - Referral to Home Health Primary Care Physician: PCP None - Patient Summary/Data Consults: Consultations 02/05/20 19:55 PT Evaluation and Treatment [CONS] Routine - Patient Instructions Diet: Low Sodium - Discharge Plan *PRESCRIPTION DRUG MONITORING PROGRAM REVIEWED*: Not Applicable *COPY OF PRESCRIPTION DRUG MONITORING REPORT IN PATIENT VISHAL: Not Applicable Prescriptions/Med Rec: carvediloL [Carvedilol] 3.125 mg PO BID 30 Days tablet Furosemide [Lasix] 20 mg PO DAILY PRN #30 tab PRN Reason: Edema lisinopriL [Lisinopril] 2.5 mg PO DAILY #30 tablet Home Medications: Home Meds Aspirin [Low Dose Aspirin EC] 81 mg PO DAILY 09/15/15 [History] Aspirin/Acetaminophen/Caffeine [Extra Pain Relief Caplet] 1 tab PO ASDIRECTED PRN 09/15/15 [History] Carboxymethylcellulose Sodium [Restore Tears] 1 drop EYEBOTH DAILY 09/15/15 [History] Vitamin B Complex [B Complex] 1 tab PO DAILY 09/15/15 [History] Calcium Carb/Magnesium Oxid/D3 [Calcium Magnesium + D] 1 tab PO DAILY 10/31/17 [History] Methylcellulose [Citrucel] 500 mg PO DAILY 10/31/17 [History] Multivitamin-Min/Iron/FA/Vit K [Multi-Day Plus Minerals Tablet] 1 tab PO DAILY 11/06/17 [History] [id number] [Cataract Opthalmic Solution] 1 drop EYEBOTH ASDIRECTED 11/07/17 [History] PARoxetine [Paxil] 10 mg PO DAILY 01/17/20 [History] Albuterol Sulfate [Albuterol Sulfate Hfa] 2 inhalation PO BID 02/05/20 [History] Budesonide/Formoterol [Symbicort 160-4.5 MCG] 1 inhalation PO DAILY 02/05/20 [History] atorvaSTATin [Lipitor] 20 mg PO DAILY 02/05/20 [History] Furosemide [Lasix] 20 mg PO DAILY PRN #30 tab 02/07/20 [Rx] carvediloL [Carvedilol] 3.125 mg PO BID 30 Days tablet 02/07/20 [Rx] lisinopriL [Lisinopril] 2.5 mg PO DAILY #30 tablet 02/07/20 [Rx] Oxygen Therapy Mode: Room Air - Discharge Summary/Plan Comment DC Time >30 min.: Yes - General Info Date of Service: 02/07/20 Admission Dx/Problem (Free Text: Admission Diagnosis/Problem Admission Diagnosis/Problem Acute heart failure Subjective Update: Patient seen and examined today. Patient walking around with no shortness of br eath. Leg swelling resolved. Functional Status: Reports: Pain Controlled - Review of Systems General: Reports: No Symptoms HEENT: Reports: No Symptoms Pulmonary: Reports: No Symptoms Cardiovascular: Reports: No Symptoms Gastrointestinal: Reports: No Symptoms Genitourinary: Reports: No Symptoms Musculoskeletal: Reports: No Symptoms Skin: Reports: No Symptoms Neurological: Reports: No Symptoms Psychiatric: Reports: No Symptoms - Patient Data Vitals - Most Recent: Last Vital Signs Temp 97.8 F 02/07/20 12:00 Pulse 89 02/07/20 12:00 Resp 20 02/07/20 12:00 BP 131/86 02/07/20 12:00 Pulse Ox 99 02/07/20 12:00 Weight - Most Recent: 115 lb 9 oz I&O - Last 24 hours: Intake & Output 02/07/20 02/07/20 02/07/20 06:59 14:59 22:59 Intake Total 150 1400 Output Total 1300 2400 Balance -1150 -1000 Lab Results - Last 24 hrs: Laboratory Results - last 24 hr 02/07/20 Range/Units 06:05 Sodium 141 (136-145) mmol/L Potassium 4.1 (3.5-5.1) mmol/L Chloride 104 (98-107) mmol/L Carbon Dioxide 32 (21-32) mmol/L Anion Gap 9.1 (7-13) mEq/L BUN 11 (7-18) mg/dL Creatinine 0.74 (0.55-1.02) mg/dL Est Cr Clr Drug Dosing 59.37 mL/min Estimated GFR (MDRD) > 60 Glucose 93 (74-99) mg/dL Calcium 9.2 (8.5-10.1) mg/dL Med Orders - Current: Current Medications Acetaminophen (Tylenol) 650 mg PO Q4H PRN PRN Reason: Pain (Mild 1-3)/fever Last Admin: 02/06/20 14:07 Dose: 650 mg Documented by: Albuterol (Proventil Neb Soln) 2.5 mg NEB Q2H PRN PRN Reason: shortness of breath/wheezing Artificial Tears (Refresh Celluvisc) 1 each EYEBOTH DAILY [facility] Last Admin: 02/07/20 08:41 Dose: 1 each Documented by: Aspirin (Halfprin) 81 mg PO DAILY [facility] Last Admin: 02/07/20 08:36 Dose: 81 mg Documented by: Calcium Carbonate (Calcium Carbonate/Vitamin D 1250 Mg-200 Unit) 1 tab PO DAILY [facility] Last Admin: 02/07/20 08:37 Dose: 1 tab Documented by: Furosemide (Lasix) 20 mg IVPUSH DAILY [facility] Last Admin: 02/07/20 08:41 Dose: 20 mg Documented by: Heparin Sodium (Porcine) (Heparin Sodium) 5,000 units SUBCUT Q8HR [facility] Last Admin: 02/07/20 15:25 Dose: Not Given Documented by: Methylcellulose (Citrucel) 500 mg PO DAILY [facility] Last Admin: 02/07/20 08:36 Dose: 500 mg Documented by: Miscellaneous Information (Check Patch) 1 ea TRDERM BEDTIME [facility] Last Admin: 02/06/20 21:30 Dose: 1 ea Documented by: Mometasone Furoate/Formoterol Fumar (Dulera 200-5 Mcg) 2 puff IH BID [facility] Last Admin: 02/07/20 08:42 Dose: 2 puff Documented by: Multivitamins/Minerals (Vitamins And Minerals) 1 tab PO DAILY [facility] Last Admin: 02/07/20 08:35 Dose: 1 tab Documented by: Nicotine (Habitrol) 14 mg TRDERM DAILY [facility] Last Admin: 02/07/20 08:48 Dose: Not Given Documented by: Oxycodone HCl (Oxycodone) 5 mg PO Q4H PRN PRN Reason: Pain (moderate 4-6) Paroxetine HCl (Paxil) 10 mg PO DAILY [facility] Last Admin: 02/07/20 08:37 Dose: 10 mg Documented by: Potassium Chloride (Klor-Con 10) 40 meq PO BIDMEALS [facility] Last Admin: 02/07/20 08:38 Dose: 40 meq Documented by: Vitamin B Complex (Vitamin B Complex) 1 each PO DAILY [facility] Last Admin: 02/07/20 08:36 Dose: 1 each Documented by: Vitamin E (Vitamin E) 400 units PO DAILY [facility] Last Admin: 02/07/20 08:37 Dose: 400 units Documented by: Zolpidem Tartrate (Ambien) 5 mg PO BEDTIME PRN PRN Reason: Sleep Discontinued Medications Alendronate Sodium (Fosamax) 70 mg PO ASDIRECTED [facility] Furosemide (Lasix) 40 mg IVPUSH BID [facility] Furosemide (Lasix) 20 mg IVPUSH DAILY [facility] Last Admin: 02/06/20 08:55 Dose: 20 mg Documented by: Magnesium Sulfate 2 gm/ Premix 50 mls @ 25 mls/hr IV ONETIME ONE Stop: 02/06/20 11:59 Last Infusion: 02/06/20 12:14 Dose: Infused Documented by: Potassium Chloride 10 meq/ (Premix) 100 mls @ 100 mls/hr IV Q1H [facility] Stop: 02/06/20 16:29 Last Admin: 02/06/20 14:40 Dose: Not Given Documented by: Potassium Chloride 10 meq/ (Premix) 100 mls @ 100 mls/hr IV Q2H [facility] Stop: 02/06/20 20:29 Last Admin: 02/06/20 16:33 Dose: Not Given Documented by: Potassium Chloride 10 meq/ (Lidocaine HCl 1 ml/ Premix) 101 mls @ 101 mls/hr IV Q2H [facility] Stop: 02/06/20 20:59 Last Admin: 02/06/20 20:42 Dose: Not Given Documented by: Iopamidol (Isovue-370 (76%)) 100 ml IVPUSH ONETIME ONE Stop: 02/05/20 23:11 Last Admin: 02/05/20 22:59 Dose: 75 ml Documented by: Non-Formulary Medication (L.Acidoph,Paracasei, B.Lactis [Probiotic]) 1 cap PO ASDIRECTED [facility] - Exam General: Reports: Alert, Oriented HEENT: Reports: Pupils Equal, Pupils Reactive, EOMI, Mucous Membr. Moist/[place] Neck: Reports: Supple Lungs: Reports: Clear to Auscultation, Normal Respiratory Effort Cardiovascular: Reports: Regular Rate, Regular Rhythm GI/Abdominal Exam: Normal Bowel Sounds, Soft, Non-Tender, No Organomegaly, No Distention, No Abnormal Bruit, No Mass, Pelvis Stable Back Exam: Reports: Normal Inspection, Full Range of Motion Extremities: Normal Inspection, Normal Range of Motion, Non-Tender, No Pedal Edema, Normal Capillary Refill Skin: Reports: Warm, Dry, Intact Neurological: Reports: No New Focal Deficit Psy/Mental Status: Reports: Alert, Normal Affect, Normal Mood
== END 2020-02-07 17:05 | disposition home or self-care (01) | DRG 293 ==
LOC: DL.MS 19:22 → UNDOADMIN 19:22 → DL.MS 19:55
PROVIDERS: ADMIT Internal Medicine; ATTEND Internal Medicine
DX: I11.0 Hypertensive heart disease with heart failure (principal); I50.41 Acute combined systolic (congestive) and diastolic (congestive) heart failure; J44.9 Chronic obstructive pulmonary disease, unspecified; F41.9 Anxiety disorder, unspecified; F32.9 Major depressive disorder, single episode, unspecified; R91.1 Solitary pulmonary nodule; E87.6 Hypokalemia; Z20.828 Contact with and (suspected) exposure to other viral communicable diseases; I27.20 Pulmonary hypertension, unspecified; H54.7 Unspecified visual loss; E78.00 Pure hypercholesterolemia, unspecified; K21.9 Gastro-esophageal reflux disease without esophagitis; M19.90 Unspecified osteoarthritis, unspecified site; F17.200 Nicotine dependence, unspecified, uncomplicated; M85.80 Other specified disorders of bone density and structure, unspecified site; Z90.710 Acquired absence of both cervix and uterus; Z71.6 Tobacco abuse counseling; Z88.0 Allergy status to penicillin; Z88.8 Allergy status to other drugs, medicaments and biological substances; Z79.82 Long term (current) use of aspirin; Z79.899 Other long term (current) drug therapy
CPT/HCPCS: 36415; 71046; 71260; 71275; 80048; 83735; 84100; 84484; 85027; 93005; 93306; A9270-GY; J1644; J1940; J2001; J3475; J3480; Q9967; U0002

== ENCOUNTER 2020-09-17 05:25 | Day surgery (SDC) | payer MEDICARE, BC ==
[~2020-09-17 05:25] MED LIST: Midazolam 1 MG/ML 2 ML SDV ONE; fentaNYL 100 MCG/2 ML SDV ONE
[2020-09-17] MEDS ORDERED: Midazolam 1 MG/ML 2 ML SDV IV ONE ×6 (05:26→06:48)
[2020-09-17] MEDS ORDERED: fentaNYL 100 MCG/2 ML SDV IV ONE ×3 (05:26→06:35)
[2020-09-17] MEDS ORDERED: Dextrose 5%-0.45% NaCl 1,000 ML IV SCH (06:00)
[2020-09-17] MEDS ORDERED: Sodium Chloride 0.9% 10 ML Syringe FLUSH PRN (06:00)
--- NOTE | 2020-09-17 07:44 | OR ---
DATE: 09/17/2020 PROCEDURES: Total colonoscopy, narrow-band imaging, and multiple cold snare polypectomies. INSTRUMENT USED: [id number]-H190DL Olympus video colonoscope. PREMEDICATIONS: Fentanyl 100 mcg intravenous, Versed 4 mg intravenous. Nasal O2 cannula. The procedure was done under pulse oximetry, BP recording, and cardiac surgeon. INDICATION: The patient with progressive constipation, unexplained and not responsive to medical measures. Colonoscopic examination is done for detection of any polypoid lesions and removal, endoscopic hemostasis therapy if needed. DESCRIPTION OF PROCEDURE: Initial rectal exam was unremarkable. Rigid anoscopy was normal. The colonoscope was passed with ease. Diminutive benign-appearing multiple polyps were noted in the rectosigmoid area, largest one in distal sigmoid, photograph was taken, cold snare polypectomy was done, the tissue was retrieved and sent for histopathology. Few scattered diverticula were noted in the distal left colon along with deformity. The scope was passed with ease up to the ileocecal area. Photographs were taken of the cecum showing diminutive benign-appearing polyp, NBI views were obtained, cold snare polypectomy was done, the tissue was retrieved and sent for histopathology. No bleeding was noted from any of the visualized areas at the commencement of the examination. The bowel preparation was found to be adequate, [place] scale 3 in all the regions, total score 9. No stricture. No vascular ectasia. No large isolated ulcerations seen. No evidence of diffuse inflammatory bowel disease in the form of friability, contact bleeding, or ulcerations. Probing the proximal sides of folds and flexures using adequate distention and clearing up the stool material, withdrawal of the scope was made, cecum to rectum time over 6 minutes. No bleeding was noted from any of the visualized areas at the completion of examination. IMPRESSION: 1. Diverticulosis. 2. Diminutive colon polyps. The patient tolerated the procedure well. [facility] /[id number]
[2020-09-17 10:26] VITALS: BP 127/71; PULSE 59
== END 2020-09-17 09:03 | disposition home or self-care (01) ==
LOC: DL.ENDO 05:25
PROVIDERS: ATTEND Internal Medicine Gastroenterology
DX: D12.0 Benign neoplasm of cecum (principal); K59.00 Constipation, unspecified; K57.30 Diverticulosis of large intestine without perforation or abscess without bleeding; E78.00 Pure hypercholesterolemia, unspecified; F17.210 Nicotine dependence, cigarettes, uncomplicated; I50.9 Heart failure, unspecified; I42.8 Other cardiomyopathies; Z98.890 Other specified postprocedural states; Z88.8 Allergy status to other drugs, medicaments and biological substances
CPT/HCPCS: 45385; J2250; J3010; J7042; 88305

== ENCOUNTER 2021-06-09 15:01 | Emergency (ER) | payer MEDICARE, BC ==
[2021-06-09] MEDS ORDERED: Doxycycline Monohydrate 100 MG Cap PO ONE (15:02)
[2021-06-09 17:01] VITALS: BP 104/72; PULSE 84
[2021-06-09 17:54] LABS: ANION GAP 9.2 mEq/L (7-13)
[2021-06-09] MEDS ORDERED: Doxycycline Monohydrate 100 MG Cap ONE (19:40)
[2021-06-09] MEDS ORDERED: Mupirocin Oint 22 GM Tube ONE (19:40)
== END 2021-06-09 19:53 | disposition home or self-care (01) ==
LOC: DL.ED 15:01
DX: L03.115 Cellulitis of right lower limb (principal); E87.1 Hypo-osmolality and hyponatremia; E78.00 Pure hypercholesterolemia, unspecified; I11.9 Hypertensive heart disease without heart failure; K21.9 Gastro-esophageal reflux disease without esophagitis; M19.90 Unspecified osteoarthritis, unspecified site; Z88.0 Allergy status to penicillin; Z79.01 Long term (current) use of anticoagulants; Z79.899 Other long term (current) drug therapy; Z79.82 Long term (current) use of aspirin; Z87.891 Personal history of nicotine dependence
CPT/HCPCS: 36415; 80053; 83735; 85025; 99282; 99283; A9270-GY

== ENCOUNTER 2024-08-30 05:36 | Day surgery (SDC) | payer MEDICARE, BC ==
[2024-08-30] MEDS ORDERED: Lactated Ringers 1,000 ML IV ONE (05:37)
[2024-08-30] MEDS ORDERED: Propofol 200 MG/20 ML SDV IV ONE (05:37)
[2024-08-30] MEDS ORDERED: Lidocaine 2% 20 ML MDV NERVRT ONE (05:37)
[2024-08-30] MEDS: Lactated Ringers 1,000 ML IV SCH (06:15)
== END 2024-08-30 08:16 | disposition home or self-care (01) ==
LOC: DL.ENDO 05:36
PROVIDERS: ATTEND Internal Medicine Gastroenterology
DX: D12.0 Benign neoplasm of cecum (principal); K57.30 Diverticulosis of large intestine without perforation or abscess without bleeding; K80.20 Calculus of gallbladder without cholecystitis without obstruction; J45.909 Unspecified asthma, uncomplicated
CPT/HCPCS: 45385; J2003; J2704; J7120; 88305